=== PATIENT | male | born 2000 | race American Indian/Alaskan Native ===

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

== ENCOUNTER 2022-01-25 01:20 | Emergency (ER) | payer OTHER ==
--- NOTE | 2022-01-25 04:41 | Emergency Department Report ---
ED General Adult HPI - General Chief complaint: Psych Stated complaint: MH EVAL Source: patient, police, RN notes reviewed, old records reviewed Mode of arrival: Ambulatory Limitations: Other (Patient is acutely psychotic and disorganized.) - History of Present Illness Initial comments: Verbal report received from [facility] Department. The patient is a 21-year-old gentleman with a history of possible psychiatric disease, who was brought to the hospital by police department, with a Police Department articulated complaint of "1013." As per police department, they were called because the patient was trying to break into apartments or cars. The patient denies physical pain. The patient states he has a different name. The patient appears to be hyperverbal, and responding to internal stimuli. He is also performing martial arts moves. He denies physical pain. He denies homicidality and suicidality. He was recently evaluated in this department for new onset psychosis. The patient does not think he takes any medications. Besides police department, patient not accompanied by friends or family at this time for collateral information or additional information. The patient thinks he has the COVID-19 vaccine. -: This morning Consistency: constant Improves with: none Worsens with: none - Related Data Allergies Allergy/AdvReac Type Severity Reaction Status Date / Time No Known Allergies Allergy Verified 12/28/21 11:34 ED Review of Systems ROS: Stated complaint: EVAL Other details as noted in HPI Constitutional: denies: fever Cardiovascular: denies: chest pain Gastrointestinal: denies: abdominal pain Genitourinary: denies: dysuria Musculoskeletal: denies: back pain Psychiatric: as per HPI. denies: homicidal thoughts, suicidal thoughts ED Physical Exam - General Limitations: Other (Acute psychosis) General appearance: alert, anxious - Head Head exam: Present: atraumatic, normocephalic - Eye Eye exam: Present: normal appearance, EOMI. Absent: nystagmus - ENT ENT exam: Present: normal exam, normal orophraynx, mucous membranes moist, normal external ear exam - Neck Neck exam: Present: normal inspection, full ROM. Absent: tenderness, meningismus - Respiratory Respiratory exam: Present: normal lung sounds bilaterally. Absent: respiratory distress, wheezes, rales, rhonchi, stridor, decreased breath sounds - Cardiovascular Cardiovascular Exam: Present: regular rate, normal rhythm, normal heart sounds. Absent: bradycardia, tachycardia, irregular rhythm, systolic murmur, diastolic murmur, rubs, gallop - GI/Abdominal GI/Abdominal exam: Present: soft. Absent: distended, tenderness, guarding, rebound, rigid, pulsatile mass - Rectal Rectal exam: Present: deferred - Extremities Exam Extremities exam: Present: normal inspection, full ROM, other (2+ pulses noted in the bilateral upper and lower extremities. There is no palpable cord. negative Homans sign. Muscular compartments are soft. The pelvis is stable.). Absent: pedal edema, calf tenderness - Back Exam Back exam: Present: normal inspection. Absent: tenderness, CVA tenderness (R), CVA tenderness (L), paraspinal tenderness, vertebral tenderness - Neurological Exam Neurological exam: Present: alert, normal gait, other (No facial droop. Tongue midline. Extraocular movements intact bilaterally. Facial sensation intact to light touch in V1, V2, V3 distribution bilaterally. 5 and a 5 strength in 4 e xtremities. Sensation intact to light touch in 4 extremities.). Absent: motor sensory deficit - Psychiatric Psychiatric exam: Present: agitated, anxious - Skin Skin exam: Present: warm, dry, intact, normal color. Absent: rash ED Course Vital Signs 01/25/22 01/25/22 01/25/22 04:39 05:36 05:54 Temperature 98.2 F 98.2 F Pulse Rate 80 80 Respiratory 18 18 18 Rate Blood Pressure 141/62 141/62 [Right] O2 Sat by Pulse 99 99 99 Oximetry - Reevaluation(s) Reevaluation #1: 01/25/22 04:40 Differential diagnosis, including but not limited to: Psychosis, medical clearance for psychiatric placement Assessment and plan: 21-year-old gentleman who appears to be psychotic. He was recently seen in this department for similar symptoms. Laboratory studies at that time, including TSH were unremarkable. The patient meets criteria for 1013 hold at this time, as he is psychotic and lacks decision-making capacity. Check vital signs. Check appropriate laboratory studies. Obtain mental health consultation. As needed midazolam, as needed haloperidol ordered. Reassess 01/25/22 05:38 Care will be transferred to the oncoming ER physician, to follow-up on vital signs, laboratory studies and urinalysis. Presuming these are unremarkable and within normal limits, we would consider this patient medically suitable for psychiatric disposition 01/25/22 06:02 Vital signs are unremarkable. Laboratory studies thus far unremarkable and nonactionable. Urinalysis, drug screen, and COVID swab pending. These are not necessary to exclude an emergent medical condition. At this point in time this patient does not appear to have an immediate medical contraindication which would preclude psychiatric admission, evaluation, consultation and placement. The emergency room will follow along as the patient replies that her UA, urine drug screen, and COVID swab. This patient is medically suitable for psychiatric disposition at this time. ED Medical Decision Making - Lab Data Result diagrams: 01/25/22 04:47 01/25/22 04:47 Vital Signs 01/25/22 01/25/22 01/25/22 04:39 05:36 05:54 Temperature 98.2 F 98.2 F Pulse Rate 80 80 Respiratory 18 18 18 Rate Blood Pressure 141/62 141/62 [Right] O2 Sat by Pulse 99 99 99 Oximetry Lab Results 01/25/22 01/25/22 01/25/22 Range/Units 04:47 04:47 04:47 WBC (4.5-11.0) K/mm3 RBC (3.65-5.03) M/mm3 Hgb (11.8-15.2) gm/dl Hct (35.5-45.6) % MCV (84-94) fl MCH (28-32) pg MCHC (32-34) % RDW (13.2-15.2) % Plt Count (140-440) K/mm3 Sodium 138 (137-145) mmol/L Potassium 4.0 (3.6-5.0) mmol/L Chloride 100.3 (98-107) mmol/L Carbon Dioxide 24 (22-30) mmol/L Anion Gap 18 mmol/L BUN 14 (9-20) mg/dL Creatinine 0.8 (0.8-1.3) mg/dL Estimated GFR > 60 ml/min BUN/Creatinine Ratio 18 % Glucose 75 (75-100) mg/dL Calcium 9.6 (8.4-10.2) mg/dL Salicylates < 0.3 L (2.8-20.0) mg/dL Acetaminophen 5.0 L (10.0-30.0) ug/mL Plasma/Serum Alcohol (0-0.07) % 01/25/22 01/25/22 Range/Units 04:47 04:47 WBC 5.9 (4.5-11.0) K/mm3 RBC 5.00 (3.65-5.03) M/mm3 Hgb 12.8 (11.8-15.2) gm/dl Hct 40.5 (35.5-45.6) % MCV 81 L (84-94) fl MCH 26 L (28-32) pg MCHC 32 (32-34) % RDW 12.4 L (13.2-15.2) % Plt Count 195 (140-440) K/mm3 Sodium (137-145) mmol/L Potassium (3.6-5.0) mmol/L Chloride (98-107) mmol/L Carbon Dioxide (22-30) mmol/L Anion Gap mmol/L BUN (9-20) mg/dL Creatinine (0.8-1.3) mg/dL Estimated GFR ml/min BUN/Creatinine Ratio % Glucose (75-100) mg/dL Calcium (8.4-10.2) mg/dL Salicylates (2.8-20.0) mg/dL Acetaminophen (10.0-30.0) ug/mL Plasma/Serum Alcohol < 0.01 (0-0.07) % Critical care attestation.: If time is entered above; I have spent that time in minutes in the direct care of this critically ill patient, excluding procedure time. ED Disposition Clinical Impression: Medical clearance for psychiatric admission Disposition: [address] [place] [address] Is pt being admited?: No Does the pt Need Aspirin: No Condition: Stable Referrals: PRIMARY CARE, [Primary Care Provider] - 3-5 Days
[2022-01-25] MEDS: MIDAZOLAM 2 MG/2 ML INJ IM PRN (05:05)
[2022-01-25] MEDS: HALOPERIDOL LACTATE 5 MG/1 ML INJ IM PRN (05:06)
[2022-01-25 05:07] LABS: Hematocrit 40.5 % (35.5-45.6); Hemoglobin 12.8 gm/dl (11.8-15.2); Mean Corpuscular HGB Conc 32 % (32-34); Mean Corpuscular Volume 81 fl (84-94); Platelet Count 195 K/mm3 (140-440); Red Cell Distribution Width 12.4 % (13.2-15.2)
[2022-01-25 05:15] LABS: BUN/Creatinine Ratio 18; Blood Urea Nitrogen 14 mg/dL (9-20); Calcium 9.6 mg/dL (8.4-10.2); Hemolysis Index 12
[2022-01-25] MEDS ORDERED: diphenhydrAMINE 50 MG/ML VIAL IM ONE (09:07)
[2022-01-25] MEDS ORDERED: HALOPERIDOL LACTATE 5 MG/1 ML INJ IM ONE (09:07)
--- NOTE | 2022-01-25 10:46 | Consultation ---
History of Present Illness - Reason for Consult Consult date: 01/25/22 Reason for consult: SI, psychosis - History of Present Psychiatric Illness The patient was seen today. He is in seclusion. He is acutely psychotic. The patient is paranoid and responding to internal stimuli. He is disorganized. He says her was brought to the hospital by his mother for an evaluation. ER report says the patient was brought by the police. The patient is staring around the room, jumpy, and places the urinal up to his mouth as if attempting to drink from it. The patient does endorse feeling depressed. He says voices tell him to leave. He moves toward the door, security tells him to step back. When asking about SI/HI, the patient says "not really." He then starts looking up and around the room. Staff says the patient has been yelling, agitated, beating his head on the wall and kicking. REVIEW OF SYSTEMS Constitutional: Negative for weight loss ENT: Negative for stridor Respiratory: Negative for cough or hemoptysis All other systems reviewed and are negative MENTAL STATUS EXAMINATION General Appearance and Behavior: Age appropriate, wearing appropriate clothes, cooperative Cooperation: cooperative Psychomotor Behavior: Psychomotor normal Mood: alright Affect and affective range: congruent with stated affect; tearful when discussing her sister's passing Thought Process: goal-oriented Thought Content: delusions Speech: Normal volume, Regular rate and rhythm Suicidal Ideation: Denies Homicidal Ideation: Denies Hallucination: Visual Delusions: Yes Impulse Control: Fair Insight and Judgment: Fair Memory: Poor Attention: Attentive Orientation: Alert, disoriented x3 Assessment Acute Psychosis Treatment 1013 Risperidone 0.5mg po BID Depakote DR 125mg po BID Doxepin 10mg po qhs Medical: per primary Sitter: defer to primary Disposition: Recommend acute psychiatric inpatient treatment Will follow. Thanks Case staffed with Dr. Peralta Medications and Allergies Allergies Allergy/AdvReac Type Severity Reaction Status Date / Time No Known Allergies Allergy Verified 12/28/21 11:34 Active Meds: Active Medications Haloperidol Lactate (Haloperidol Lactate 5 Mg/1 Ml Inj) 5 mg IM Q6HR PRN PRN Reason: Agitation Last Admin: 01/25/22 05:06 Dose: 5 mg Midazolam HCl (Midazolam 2 Mg/2 Ml Inj) 2 mg IM Q6HR PRN PRN Reason: Agitation Last Admin: 01/25/22 05:05 Dose: 2 mg Mental Status Exam - Vital signs Last Vital Signs Temp 98.2 F 01/25/22 05:54 Pulse 80 01/25/22 05:54 Resp 18 01/25/22 05:54 BP 141/62 01/25/22 05:54 Pulse Ox 99 01/25/22 05:54 Results Result Diagrams: 01/25/22 04:47 01/25/22 04:47 Abnormal lab results 01/25/22 01/25/22 01/25/22 Range/Units 04:47 04:47 04:47 MCV 81 L (84-94) fl MCH 26 L (28-32) pg RDW 12.4 L (13.2-15.2) % Salicylates < 0.3 L (2.8-20.0) mg/dL Acetaminophen 5.0 L (10.0-30.0) ug/mL All other labs normal.
[2022-01-25] MEDS: DIVALPROEX DR 125 MG TAB PO SCH (10:56)
[2022-01-25] MEDS: risperiDONE 0.25 MG TAB PO SCH (10:56)
[2022-01-26] MEDS: MIDAZOLAM 2 MG/2 ML INJ IM PRN (08:49)
[2022-01-26] MEDS: HALOPERIDOL LACTATE 5 MG/1 ML INJ IM PRN (08:49)
--- NOTE | 2022-01-26 11:02 | Progress Note ---
Subjective - Reason for Consult Consult date: 01/26/22 Reason for consult: psychisis - Chief Complaint Chief complaint: The patient was seen today. He is still in seclusion. He is still acutely psychotic. He is responding to internal stimuli. He is standing at the door staring making weird movements with his hand. I ask him was he hearing voices, he would not answer. Staff says the patient has been agitated, and psychotic. REVIEW OF SYSTEMS Unable to assess MENTAL STATUS EXAMINATION Unable to assess Assessment Acute Psychosis Treatment 1013 Increase Risperidone 1mg po BID Increase Depakote DR 250mg po BID Doxepin 10mg po qhs Medical: per primary Sitter: defer to primary Disposition: Recommend acute psychiatric inpatient treatment Will follow. Thanks Case staffed with Dr. Peralta Mental Status Exam - Vital signs Last Vital Signs Temp 97.5 F L 01/26/22 08:46 Pulse 20 L 01/26/22 08:46 Resp 20 01/26/22 08:46 BP 124/73 01/26/22 08:46 Pulse Ox 99 01/26/22 08:47
--- NOTE | 2022-01-26 13:01 | Event Note ---
Date: 01/26/22 S: Patient agitated this morning and pulled the covers off of the vent. Patient was sedated O: Vital Signs - 8 hr 01/26/22 01/26/22 01/26/22 08:46 08:47 13:01 Temperature 97.5 F L Pulse Rate 20 L 83 Respiratory 20 Rate Blood Pressure 124/73 [Left] O2 Sat by Pulse 99 99 Oximetry A: Acute psychosis P: Awaiting inpatient psych
[2022-01-26] MEDS: DIVALPROEX DR 125 MG TAB PO SCH ×2 (21:35→21:36)
[2022-01-26] MEDS: DOXEPIN 10 MG CAP PO SCH ×2 (21:36→21:52)
[2022-01-26] MEDS: risperiDONE 0.25 MG TAB PO SCH (21:36)
[2022-01-26] MEDS ORDERED: risperiDONE 1 MG TAB PO SCH (22:00)
[2022-01-26] MEDS ORDERED: DIVALPROEX DR 250 MG TAB PO SCH (22:00)
--- NOTE | 2022-01-27 10:27 | Progress Note ---
Subjective - Reason for Consult Consult date: 01/27/22 Reason for consult: psychosis - Chief Complaint Chief complaint: The patient was seen today. He is still in seclusion. The patient is mumbling to himself. He says "I don't know to most questions." I'm having to ask him several times, but he is mumbling incoherently. He says "maybe" when asking was he suicidal or homicidal. Staff says the patient has been agitated, and psychotic. REVIEW OF SYSTEMS Unable to assess MENTAL STATUS EXAMINATION Unable to assess Assessment Acute Psychosis Treatment 1013 Increase Risperidone 1.5mg po BID Increase Depakote DR 250mg po TID Doxepin 10mg po qhs Medical: per primary Sitter: defer to primary Disposition: Recommend acute psychiatric inpatient treatment Will follow. Thanks Case staffed with Dr. Peralta Mental Status Exam - Vital signs Last Vital Signs Temp 99 F 01/26/22 20:00 Pulse 82 01/26/22 20:00 Resp 16 01/26/22 20:00 BP 105/56 01/26/22 20:00 Pulse Ox 95 01/26/22 20:41
[2022-01-27] MEDS: DIVALPROEX DR 250 MG TAB PO SCH ×3 (16:44→20:44)
[2022-01-27] MEDS: risperiDONE 1 MG TAB PO SCH ×2 (16:44→17:04)
[2022-01-27] MEDS: HALOPERIDOL LACTATE 5 MG/1 ML INJ IM PRN (20:44)
[2022-01-28 08:30] VITALS: BP 116/61
--- NOTE | 2022-01-28 09:17 | Progress Note ---
Subjective - Reason for Consult Consult date: 01/28/22 Reason for consult: mental health evaluation - Chief Complaint Chief complaint: Patient received haldol 5 mg IM last night for agitation. Patient reports he's here because "I just smoked fake weed and didn't know what was going on." Patient denies previous psychiatric diagnoses, but reports feeling agitated and having hallucinations when he smokes weed, which he consumes daily. When asked to characterize hallucinations, patient reports "I just want to leave bro." Patient reports if he was discharged "I'd stopped smoking weed and listen to my mom." Patient interrupted interview to talk with other patients. Patient held out his hand, kneeled, and bowed during interview 2x to other patients in hallway. After our interview, patient interrupted two other interviews and repeated "I just smoked fake weed." Patient denies previous suicide attempts and denies SI HI AVH. PAST PSYCHIATRIC HISTORY: Diagnoses: Denies Suicide attempts or Self-harm behavior: Denies Prior psychiatric hospitalizations: Yes Substance Abuse history: Independence Previous psychiatric medications tried: Denies Outpatient treatment: Denies SOCIAL HISTORY Marital Status: Single Living Arrangements: With family Employment Status: Unemployed Access to guns/weapons: Yes Education: High school History of Abuse: Denies Legal History: Denies REVIEW OF SYSTEMS Constitutional: Negative for weight loss ENT: Negative for stridor Respiratory: Negative for cough or hemoptysis All other systems reviewed and are negative MENTAL STATUS EXAMINATION General Appearance and Behavior: Age appropriate, wearing appropriate clothes, good eye contact Cooperation: Uncooperative Psychomotor Behavior: Psychomotor normal; patient kneeling and bowing during interview Mood: okay Affect and affective range: irritable Thought Process: disorganized Thought Content: reality-based Speech: Normal volume, Regular rate and rhythm Suicidal Ideation: Denies Homicidal Ideation: Denies Hallucination: Denies Delusions: None elicited Impulse Control: Limited Insight and Judgment: Poor Memory: Intact Attention: Distracted Orientation: Alert and oriented x3 Assessment Acute Psychosis Treatment 1013 Maintain Risperidone 1.5mg po BID Maintain Depakote DR 250mg po TID Doxepin 10mg po qhs Medical: per primary Sitter: defer to primary Disposition: Recommend acute psychiatric inpatient treatment. If patient's mentation continues to improve, will likely recommend outpatient treatment tomorrow. Will follow. Thanks Case staffed with Dr. Peralta Mental Status Exam - Vital signs Last Vital Signs Temp 98.5 F 01/28/22 08:29 Pulse 89 01/28/22 08:29 Resp 18 01/28/22 08:29 BP 116/61 01/28/22 08:29 Pulse Ox 100 01/28/22 08:29
[2022-01-28] MEDS: risperiDONE 1 MG TAB PO SCH (10:56)
[2022-01-28] MEDS: DIVALPROEX DR 250 MG TAB PO SCH ×3 (10:57→20:55)
[2022-01-28 13:08] LABS: Bilirubin,Urine NEG (Negative); Blood,Urine NEG (Negative); Color,Urine Straw (Yellow); Protein,Urine <15 mg/dL mg/dL (Negative)
[2022-01-28 13:13] LABS: Urobilinogen,Urine < 2 mg/dL (<2.0)
--- NOTE | 2022-01-28 13:21 | Event Note ---
Date: 01/28/22 Patient is seen and examined. He is laying on his right hand side, self stimulating. He is also naked. This patient was medically cleared during his initial ER evaluation. He continues to remain medically clear for psychiatric placement and disposition. Nursing team reports that the patient went to the bathroom, and ate food this morning Vital signs, laboratory studies, nursing documentation psychiatric documentation are reviewed and appreciated. Vital Signs 01/25/22 01/25/22 01/25/22 04:39 05:36 05:54 Temperature 98.2 F 98.2 F Pulse Rate 80 80 Respiratory 18 18 18 Rate Blood Pressure [Left] Blood Pressure 141/62 141/62 [Right] O2 Sat by Pulse 99 99 99 Oximetry 01/25/22 01/26/22 01/26/22 22:16 04:12 08:46 Temperature 98.5 F 98.1 F 97.5 F L Pulse Rate 121 H 96 H 20 L Respiratory 18 18 20 Rate Blood Pressure 125/64 128/60 124/73 [Left] Blood Pressure [Right] O2 Sat by Pulse 99 100 99 Oximetry 01/26/22 01/26/22 01/26/22 08:47 13:01 20:00 Temperature 99 F Pulse Rate 83 82 Respiratory 16 Rate Blood Pressure 105/56 [Left] Blood Pressure [Right] O2 Sat by Pulse 99 95 Oximetry 01/26/22 01/27/22 01/27/22 20:41 19:43 20:00 Temperature Pulse Rate 85 Respiratory 18 Rate Blood Pressure 128/75 [Left] Blood Pressure [Right] O2 Sat by Pulse 95 100 100 Oximetry 01/28/22 08:29 Temperature 98.5 F Pulse Rate 89 Respiratory 18 Rate Blood Pressure 116/61 [Left] Blood Pressure [Right] O2 Sat by Pulse 100 Oximetry
[2022-01-28 13:23] LABS: Amphetamine Screen,Urine Negative; Benzodiazepines Screen,Urine Negative; Cocaine Screen,Urine Negative; Methadone Screen,Urine Negative; Opiate Screen,Urine Negative
[2022-01-28 13:45] LABS: Cannabinoid Screen,Urine Positive
[2022-01-28] MEDS ORDERED: cephALEXin ORAL LIQD 500 MG/10 ML ORAL LIQD PO ONE (20:30)
== END 2022-01-28 21:46 ==
LOC: ED 01:20 → EEVIPCON 01:20 → ED 01-28 21:46
DX: Z04.6 Encounter for general psychiatric examination, requested by authority (principal); Z20.822 Contact with and (suspected) exposure to COVID-19; Z79.899 Other long term (current) drug therapy
CPT/HCPCS: 36415; 80048; 80307; 81001; 85027; 96372; 99285; J1200; J1630; J2250; U0003; 80320; G0480